=== PATIENT | female | born 1990 | race Caucasian/White ===

== ENCOUNTER → 2020-06-24 | Outpatient (CLI) | payer OTHER | LOC: LAB 11:11 | DX: Z32.00 Encounter for pregnancy test, result unknown (principal) | CPT/HCPCS: 36415; 84702 ==

== ENCOUNTER → 2020-06-26 | Outpatient (CLI) | payer OTHER | LOC: LAB 14:28 | DX: Z32.00 Encounter for pregnancy test, result unknown (principal) | CPT/HCPCS: 84702 ==

== ENCOUNTER 2021-03-01 16:21 | Inpatient (IN) | payer OTHER ==
[~2021-03-01] VITALS: Ht 157.5 cm; Wt 67.1 kg
[2021-03-01 17:30] LABS: HEMOGLOBIN 10.1 gm/dl (12.3-15.3); RED BLOOD COUNT 3.37 M/UL (4.00-5.10); WHITE BLOOD COUNT 7.1 K/UL (4.5-11.0)
[2021-03-03 07:53] LABS: HEMOGLOBIN 9.3 gm/dl (12.3-15.3)
[2021-03-03] MEDS ORDERED: COLACE100 MG PO (10:45)
[2021-03-03] MEDS ORDERED: IBUPROFEN800 MG PO (10:45)
[2021-03-03] MEDS ORDERED: HEMOCYTE324 MG PO (10:45)
== END 2021-03-03 15:50 | disposition home or self-care (01) | DRG 807 ==
LOC: GENOP 16:21 → OB 16:45
PROVIDERS: Obstetrics & Gynecology; ADMIT Obstetrics & Gynecology
PROC: 10E0XZZ Delivery of Products of Conception, External Approach (ICD-10-PCS; principal; 2021-03-02)
PROC: 4A1HXCZ Monitoring of Products of Conception, Cardiac Rate, External Approach (ICD-10-PCS; 2021-03-02)
PROC: 10907ZC Drainage of Amniotic Fluid, Therapeutic from Products of Conception, Via Natural or Artificial Opening (ICD-10-PCS; 2021-03-02)
PROC: 3E033VJ Introduction of Other Hormone into Peripheral Vein, Percutaneous Approach (ICD-10-PCS; 2021-03-02)
PROC: 00HU33Z Insertion of Infusion Device into Spinal Canal, Percutaneous Approach (ICD-10-PCS; 2021-03-02)
PROC: 3E0R3BZ Introduction of Anesthetic Agent into Spinal Canal, Percutaneous Approach (ICD-10-PCS; 2021-03-02)
DX: O98.42 Viral hepatitis complicating childbirth (principal); Z37.0 Single live birth; O69.81X0 Labor and delivery complicated by cord around neck, without compression, not applicable or unspecified; Z3A.39 39 weeks gestation of pregnancy; B19.20 Unspecified viral hepatitis C without hepatic coma; Z20.822 Contact with and (suspected) exposure to COVID-19; Z90.49 Acquired absence of other specified parts of digestive tract; Z87.891 Personal history of nicotine dependence
CPT/HCPCS: 36415; 51702; 81001; 82800; 85014; 85018; 85025; J2590; J7120